=== PATIENT | female | born 1975 ===

== ENCOUNTER 2018-01-04 09:29 | Emergency (ER) | payer OTHER ==
--- NOTE | 2018-01-04 10:51 | UC ---
Skin Complaint HPI - HPI Summary HPI Summary: 42 yo female presents for suture removal. She tells me that 5 days ago she was in [place] rollerbl[place] when she fell and hit her head. Went to the ED and everything was ok - per pt. Sustained a laceration above her left eye and had 7 sutures placed - here for removal. She has been changing the dressing daily. No issues. - History of Current Complaint Chief Complaint: UCGeneralIllness Stated Complaint: STITCHES REMOVAL Hx Obtained From: Patient Hx Last Menstrual Period: 10/29/17 Onset/Duration: Sudden Onset Skin Exposure Onset/Duration: Days Ago Onset Severity: Moderate Current Severity: Mild Pain Intensity: 2 Pain Scale Used: 0-10 Numeric - Allergy/Home Medications Allergies/Adverse Reactions: Allergies Allergy/AdvReac Type Severity Reaction Status Date / Time Sulfa (Sulfonamide Allergy Rash Verified 01/04/18 10:51 Antibiotics) Review of Systems Constitutional: Negative Skin: Other - [address] above left eye Eyes: Negative Respiratory: Negative Cardiovascular: Negative Neurovascular: Negative Psychological: Negative All Other Systems Reviewed And Are Negative: Yes PMH/Surg Hx/FS Hx/Imm Hx - Additional Past Medical History Additional PMH: None Previously Healthy: Yes - Surgical History Surgical History: Yes Surgery Procedure, Year, and Place: nasal - Family History Known Family History: Positive: Hypertension, Other - RA - Social History Occupation: Employed Full-time Lives: With Family Alcohol Use: None Substance Use Type: None Smoking Status (MU): Former Smoker When Did the Patient Quit Smoking/Using Tobacco: 2007 Physical Exam - Summary Physical Exam Summary: GENERAL: NAD. WDWN. No pain distress. SKIN: 2.0cm linear laceration above left eye. [address] Good approximation. No edema or erythema. No streaking, bleeding, or drainage. NECK: Supple. Nontender. No lymphadenopathy. CHEST: No accessory muscle use. Breathing comfortably and in no distress. CV: RRR. Without m/r/g. NEURO: Alert. CN II-XII grossly intact. PSYCH: Age appropriate behavior. Triage Information Reviewed: Yes Course/Dx - Course Course Of Treatment: 7 sutures removed without issue. Pt tolerated well - Diagnoses Provider Diagnoses: Suture removal Discharge - Sign-Out/Discharge Documenting (check all that apply): Discharge/Admit/Transfer - Discharge Plan Condition: Stable Disposition: HOME Patient Education Materials: Stitches Removal (ED) Referrals: Non Staff,Doctor [Primary Care Provider] - Additional Instructions: If you develop a fever, shortness of breath, chest pain, new or worsening symptoms - please call your PCP or go to the ED. - Billing Disposition and Condition Condition: STABLE Disposition: HOME
[2018-01-04 10:54] VITALS: BP 115/70
== END 2018-01-04 11:08 | disposition home or self-care (01) ==
LOC: UCCORT 09:29
DX: S01.91XD Laceration without foreign body of unspecified part of head, subsequent encounter (principal); W19.XXXD Unspecified fall, subsequent encounter; Z88.2 Allergy status to sulfonamides; Z87.891 Personal history of nicotine dependence
CPT/HCPCS: 99211; G0463